=== PATIENT | male | born 1990 | race Caucasian/White ===

== ENCOUNTER 2017-06-13 22:58 | Emergency (ER) | payer MEDICAID, OTHER ==
[~2017-06-13] VITALS: Ht 177.8 cm; Wt 77.1 kg
--- NOTE | 2017-06-13 23:00 | NUR ---
TO BED 7 A 26 YO MALE PATIENT BB RA FROM HOME FOR SYNCOPAL EPISODE. UPON ARRIVAL TO ER, PATIENT IS AAOX4, NAD NOTED. VSS. NONDIAPHORETIC. PLACED ON VS MONITORING. GOWNED. COMFORT AND SAFETY MEASURES RENDERED. FAMILY AT BEDSIDE.
--- NOTE | 2017-06-13 23:23 | NUR ---
xr at bedside.
[2017-06-13] MEDS ORDERED: IV NS 0.9% 1,000 ML BAG IV ONE (23:30)
[2017-06-13 23:51] LABS: BASOPHILS % (AUTO) 0.4 % (0.0-2.0); EOSINOPHILS # (AUTO) 0.4 /CMM (0.0-0.7); EOSINOPHILS % (AUTO) 3.9 % (0.0-6.0); HEMATOCRIT 44 % (39-51); HEMOGLOBIN 14.5 g/dL (13.5-17.5); LYMPHOCYTES # (AUTO) 2.7 /CMM (0.8-4.8); LYMPHOCYTES % (AUTO) 30.4 % (20.0-44.0); MEAN CORPUSCULAR HEMOGLOBIN 28 PG (26.0-33.0); MEAN CORPUSCULAR HGB CONC 33 g/dl (31.0-36.0); MEAN CORPUSCULAR VOLUME 84 fL (80-96); MONOCYTES # (AUTO) 0.4 /CMM (0.1-1.30); MONOCYTES % (AUTO) 4.8 % (2.0-12.0); NEUTROPHILS # (AUTO) 5.4 /CMM (1.8-8.9); NEUTROPHILS % (AUTO) 60.5 % (43.0-81.0); PLATELET COUNT (AUTO) 192 /CMM (150-450); RDW COEFFICIENT OF VARIATION 13.4 (11.5-15.0); RED BLOOD CELL COUNT(AUTO) 5.24 MIL/uL (4.5-6.0)
[2017-06-13 23:55] LABS: CALCIUM, SERUM 9.1 mg/dL (8.5-10.1); CARBON DIOXIDE 27 mmol/L (21-32); CHLORIDE 104 mmol/L (98-107); CREATININE 1.4 mg/dL (0.6-1.3); GLUCOSE 219 mg/dL (74-106); INR 1.04 (0.87-1.13); POTASSIUM 3.6 mmol/L (3.5-5.1); PROTHROMBIN TIME 10.8 SECS (9.5-12.7); SODIUM SERUM 140 mmol/L (136-145); UREA NITROGEN, BLOOD 28 mg/dL (7-18)
[2017-06-14] LABS: ALANINE AMINOTRANSFERASE 19 U/L (12-78); ALBUMIN 4.3 g/dL (3.4-5.0); ALKALINE PHOSPHATASE 47 U/L (46-116); ASPARTATE AMINOTRANSFERASE 11 U/L (15-37); BILIRUBIN,DIRECT 0.1 mg/dL (0.0-0.2); BILIRUBIN,TOTAL 0.5 mg/dL (0.2-1.0); TOTAL PROTEIN, SERUM 7.1 g/dL (6.4-8.2); TROPONIN I < 0.017 ng/mL (0.00-0.056)
[2017-06-14 00:37] LABS: APPEARANCE,URINE CLEAR (CLEAR); BILIRUBIN,URINE NEGATIVE (NEGATIVE); BLOOD, URINE NEGATIVE Ery/uL (NEGATIVE); COLOR,URINE YELLOW (YELLOW); KETONES,URINE NEGATIVE (NEGATIVE); LEUKOCYTE ESTERASE ,URINE NEGATIVE (NEGATIVE); NITRITE, URINE NEGATIVE (NEGATIVE); PROTEIN,URINE NEGATIVE (NEGATIVE); UGLUCOSE NEGATIVE (NEGATIVE); UROBILINOGEN,URINE 0.2 EU/dL (0.2)
--- NOTE | 2017-06-14 00:52 | NUR ---
IV removed. Catheter intact and site benign. Pressure and 4x4 applied to site. No bleeding noted. Patient discharged to home in stable condition. Written and verbal after care instructions given. Patient verbalizes understanding of instruction. Patient is ambulatory with steady gait, accompanied by family. No further complaints.
[2017-06-14 00:53] VITALS: BP 137/74
== END 2017-06-14 00:54 | disposition home or self-care (01) ==
LOC: ER 23:00
DX: R55 Syncope and collapse (principal)
CPT/HCPCS: 36415; 71010-TC; 80048-TC; 80076-TC; 81000-TC; 84484-TC; 85025-TC; 85730-TC; A4606; J7030; Z7610